=== PATIENT | male | born 1955 ===

== ENCOUNTER 2017-11-18 07:56 | Day surgery (SDC) | payer BC ==
[2017-11-18] MEDS ORDERED: Lactated Ringer's 500 ML IV ONE (08:45)
[2017-11-18 09:02] VITALS: TEMP 96.8
[2017-11-18] MEDS ORDERED: Propofol 10 mg/ml Inj (20 ML) ONE (10:55)
[2017-11-18 11:16] VITALS: BP 106/64
[2017-11-18 11:38] VITALS: PULSE 55; RESP 10; O2SAT 99
== END 2017-11-18 11:57 | disposition home or self-care (01) ==
LOC: H.ENDO 07:56
PROVIDERS: ATTEND Internal Medicine Gastroenterology
DX: K31.89 Other diseases of stomach and duodenum (principal); K92.1 Melena; I25.10 Atherosclerotic heart disease of native coronary artery without angina pectoris; E78.5 Hyperlipidemia, unspecified
CPT/HCPCS: 43239; 88305; J2704; J7120